=== PATIENT | male | born 1935 | race Caucasian/White ===

== ENCOUNTER 2016-07-03 09:13 | Emergency (ER) | payer OTHER ==
[~2016-07-03] VITALS: Ht 182.9 cm; Wt 80.5 kg
[~2016-07-03 09:13] MED LIST: ASPI81 PO; CLIN1CAP6 PO; DIPH2%T PO; FINA5TAB77 PO; LISI-586 PO; MEVA40TA6 PO; [UNRECOGNIZED DRUG - CODE] PO
[2016-07-03 09:16] VITALS: PULSE 74; RESP 16; TEMP 98; O2SAT 98
--- NOTE | 2016-07-03 09:33 | PD ---
HPI Chief Complaint: Pain: Acute or Chronic Time Seen by Provider: 09:21 Travel History International Travel<30 days: No Contact w/Intl Traveler<30days: No Traveled to known affect area: No History of Present Illness HPI This is an 80-year-old male who presents to the emergency department with left knee pain that started 3 days ago, and has been constant, worsening to the point where he has trouble weightbearing on his knee. He had some swelling this morning that he noticed was prompted to come to the emergency department. He denies any fevers or chills. He has no history of diabetes. He denies heavy alcohol use. He does work on his yard on his knees a fair amount. PFSH Past Medical History Hx Anticoagulant Therapy: Yes (BABY ASA DAILY) Cancer: Yes (MELANOMA) Cardiovascular Problems: Yes (HTN, CHOL) Chemotherapy: No Cerebrovascular Accident: No Diabetes: No Glaucoma: No Hepatitis: No Hiatal Hernia: Yes Hypertension: Yes Respiratory: No Immunizations Current: Yes Thyroid Disease: No Past Surgical History Eye Surgery: Yes (LEFT EYE MACULAR HOLE SURGERY) Genitourinary Surgery: Yes (EXC LEFT KIDNEY STONE) Pacemaker: No Other Surgery: Yes Social History Alcohol Use: No (OCCASIONAL) Tobacco Use: No Substance Use: No Allergies-Medications (Allergen,Severity, Reaction): Coded Allergies: Contrast Media (Verified Allergy, Severe, HIVES AND ELEVATED TEMP, 07/03/16) Sulfa (Verified Allergy, Severe, PASSED OUT, 07/03/16) Reported Meds & Prescriptions Reported Meds & Active Scripts Active Reported Zzzquil (Diphenhydramine (Sleep)) 25 Mg Cap 25 Mg PO HS PRN Finasteride 5 Mg Tab 5 Mg PO HS Do not crush. Lovastatin 40 Mg Tab 40 Mg PO HS Amlodipine (Amlodipine Besylate) 5 Mg Tab 5 Mg PO DAILY Losartan (Losartan Potassium) 100 Mg Tab 100 Mg PO DAILY Aspirin 81 Mg Chew 81 Mg CHEW HS Review of Systems Except as stated in HPI: all other systems reviewed are Neg Physical Exam Narrative GENERAL:Well appearing, no acute distress SKIN: Warm and dry. HEAD: Atraumatic. Normocephalic. EYES: Pupils equal and round. No injection or drainage. ENT: Moist mucous membranes NECK: Trachea midline. CARDIOVASCULAR: Regular rate and rhythm. No murmur appreciated. RESPIRATORY: Clear to auscultation. Breath sounds equal bilaterally. GASTROINTESTINAL: Abdomen soft, non-tender, nondistended. MUSCULOSKELETAL: Some warmth of the left knee with no large effusion, able to range the knee passively to 70 with some pain. A large amount of bony crepitus involving the knee. Focally tender on the superior aspect of the patella. NEUROLOGICAL: Awake and alert. No obvious cranial nerve deficits. Moving all extremities. PSYCHIATRIC: Appropriate mood and affect; insight and judgment normal. Data Data Last Documented VS Vital Signs Date Time Temp Pulse Resp B/P Pulse Ox O2 Delivery O2 Flow Rate FiO2 07/03/16 09:16 98.0 74 16 98 Orders Knee, Complete (4vws) (07/03/16 ) Ketorolac Inj (Toradol Inj) (07/03/16 09:45) Femur (Ap & Lat/2vws) (07/03/16 ) MDM Medical Decision Making Medical Screen Exam Complete: Yes Emergency Medical Condition: Yes Interpretation(s) Afebrile, no tachycardia, normotensive Last 24 hours Impressions Knee X-Ray 07/03/16 0000 Signed Impressions: Service Date/Time: Sunday, July 03, 2016 09:46 - CONCLUSION: 1. No acute left knee abnormality is identified. 2. There is a partially visualized bone lesion in the distal femoral diaphysis measuring at least 4.4 cm. Although incompletely visualized the appearance favors an enchondroma or bone infarct. This should be correlated with the patient's prior imaging studies and I would recommend obtaining femur x-rays to visualize the full extent of the finding. Livan Rawls MD Differential Diagnosis Osteoarthritis, septic arthritis, gout, tumor Narrative Course This is an 80-year-old male who presents to the emergency department with left knee pain. He denies any fevers or chills. He doesn't have an effusion on exam. He is able to passively range the knee without pain. I suspect she has osteoarthritis. Patient will be discharged on an anti-inflammatory. X-rays were obtained which demonstrate a possible endochondroma in the distal left femur area I think his pain seems to be independent of this lesion but he was told to follow-up with an orthopedist regarding both issues. Patient will be discharged home. I considered septic arthritis but he is afebrile, and the knee has reasonable range of motion with no effusion. Diagnosis Primary Impression: Osteoarthritis of left knee Qualified Code: M17.12 - Primary osteoarthritis of left knee Additional Impression: Enchondroma of left femur Referrals: Diego Silva Jr., MD Patient Instructions: General Instructions Additional Instructions: If you develop fever, chills, increasing swelling of your knee or inability to walk return to the emergency department. Follow-up with an orthopedic surgeon if your symptoms are not improving in 3-4 days. Med/Other Pt SpecificInfo: Prescription(s) given Scripts Meloxicam 7.5 Mg Tab7.5 Mg PO DAILY #10 TAB Ref 0 Prov:Akua Yusuf MD 07/03/16 Disposition: 01 DISCHARGE HOME Condition: Stable Akua Yusuf MD Jul 03, 2016 09:33
[2016-07-03] MEDS ORDERED: KETOROLAC TROMETHAMINE 60 MG/2 ML (IM) VIAL IM ONE (09:45)
[2016-07-03] MEDS ORDERED: ASPI81CH CHEW (09:47)
[2016-07-03] MEDS ORDERED: LOSA100T PO (09:47)
[2016-07-03] MEDS ORDERED: FINA5TAB2 PO (09:47)
[2016-07-03] MEDS ORDERED: LOVA40TA PO (09:47)
[2016-07-03] MEDS ORDERED: AMLO5TAB2 PO (09:47)
[2016-07-03] MEDS ORDERED: DIPH-148 PO (09:47)
--- NOTE | 2016-07-03 10:15 | RADHPO ---
EXAM DATE/TIME: 07/03/2016 09:46 [facility] COMPARISON: No previous studies available for comparison. INDICATIONS : Sudden onset of left knee pain, no known injury MEDICAL HISTORY : None. SURGICAL HISTORY : None. ENCOUNTER: Initial ACUITY: 3 days PAIN SCORE: 10/10 LOCATION: Left knee FINDINGS: 4 views of the left knee demonstrate no fracture or dislocation. No joint effusion is identified. No significant degenerative change is present. There is a partially visualized sclerotic lesion in the d istal femoral diaphysis. The visualized portion measures 4.4 cm in length. It is centered within the medullary cavity and there are no findings to indicate endosteal scalloping or cortical breakthrough. CONCLUSION: 1. No acute left knee abnormality is identified. 2. There is a partially visualized bone lesion in the distal femoral diaphysis measuring at least 4.4 cm. Although incompletely visualized the appearance favors an enchondroma or bone infarct. This shou ld be correlated with the patient's prior imaging studies and I would recommend obtaining femur x-ray s to visualize the full extent of the finding. Livan Rawls MD on July 03, 2016 at 10:12 Board Certified Radiologist. This report was verified electronically.
--- NOTE | 2016-07-03 11:04 | RADHPO ---
EXAM DATE/TIME: 07/03/2016 10:36 [facility] COMPARISON: No previous studies available for comparison. INDICATIONS : Left knee area pain, no known injury MEDICAL HISTORY : None. SURGICAL HISTORY : None. ENCOUNTER: Subsequent ACUITY: 3 days PAIN SCORE: 10/10 LOCATION: Left Femur FINDINGS: 4 views of the left femur demonstrate a sclerotic lesion within the medullary space in the distal fem oral diaphysis. It measures approximately 6.8 x 2.0 cm. There is no endosteal scalloping or cortical breakthrough visualized. No soft tissue mass is seen. No soft tissue abnormality is identified. There is no radiopaque foreign body. CONCLUSION: The sclerotic lesion in the distal femoral diaphysis measures up to 6.8 cm. Imaging features favor an enchondroma as the etiology. There are no suspicious features identified. It would be ideal to corre late with prior imaging studies to confirm stability of this lesion. If none are available I would [place] performing followup x-ray to document stability in a few months. If the patient is having any f ocal pain in this area, consider elective outpatient CT scan at followup. Livan Rawls MD on July 03, 2016 at 11:00 Board Certified Radiologist. This report was verified electronically.
[2016-07-03] MEDS ORDERED: MELO7.5T4 PO (11:10)
== END 2016-07-03 11:28 | disposition home or self-care (01) ==
LOC: PHEFT 09:13
DX: M17.12 Unilateral primary osteoarthritis, left knee (principal); D16.22 Benign neoplasm of long bones of left lower limb; I10 Essential (primary) hypertension; Z79.82 Long term (current) use of aspirin
CPT/HCPCS: 73552; 73564; 96372; 99283; J1885